=== PATIENT | male | born 1995 ===

== ENCOUNTER 2017-10-07 12:27 | Emergency (ER) | payer MEDICAID, OTHER ==
--- NOTE | 2017-10-07 12:39 | ED PDOC ---
HPI: Psych/Substance Abuse Time Seen by Provider: 10/07/17 12:38 Chief Complaint (Nursing): Psychiatric Evaluation Chief Complaint (Provider): crisis eval History Per: Patient Additional Complaint(s): 22-year-old male presents to emergency department for psychiatric evaluation. Patient's called the police when patient became agitated at home. EMS states that at home patient was verbalizing thoughts of wanting to harm himself and other people. Upon arrival patient is acutely agitated and aggressive and will not answer questions appropriately. He is refusing to change into gowns and is refusing all treatment. Patient's at bedside states the patient has a seizure disorder and the medications that he takes for the seizures cause him to be depressed and agitated. and patient don't know the name of the medication patient takes for seizures. Past Medical History Reviewed: Historical Data, Nursing Documentation, Vital Signs Vital Signs: Last Vital Signs Temp 98.6 F 10/07/17 12:31 Pulse 117 H 10/07/17 12:31 Resp 16 10/07/17 12:31 BP 154/87 H 10/07/17 12:31 Pulse Ox 99 10/07/17 12:31 - Medical History PMH: Asthma, Seizures - Family History Family History: States: No Known Family Hx - Living Arrangements Living Arrangements: With Family - Social History Alcohol: None Drugs: Cannabis - Home Medications Home Medications: Ambulatory Orders Medication Instructions Recorded No Known Home Med 05/20/17 - Allergies Allergies/Adverse Reactions: Allergies Allergy/AdvReac Type Severity Reaction Status Date / Time No Known Allergies Allergy Verified 05/20/17 16:04 Review of Systems ROS Statement: Except As Marked, All Systems Reviewed And Found Negative Psych: Positive for: Other (acute agitation) Physical Exam - Reviewed Nursing Documentation Reviewed: Yes Vital Signs Reviewed: Yes - Physical Exam Appears: Positive for: Well, Non-toxic, No Acute Distress Skin: Negative for: Rash Eye Exam: Positive for: Normal appearance, EOMI, PERRL Neurologic/Psych: Positive for: Alert, Oriented, Mood/Affect (Agitated, aggressive, combative), Gait (steady) - Laboratory Results Result Diagrams: 10/07/17 13:29 10/07/17 13:29 - ECG Interpretation Of ECG: NSR 96 bpm, no acute change, reviewed by PA and ED attending O2 Sat by Pulse Oximetry: 99 Pulse Ox Interpretation: Normal - Other Rad bedside chest X-Ray: Interpreted by Me, Viewed By Me X-Ray Interpretation: no acute finding Medical Decision Making Medical Decision Makin22 year old EDP 1:00 pm: Patient is acutely agitated upon arrival. Security was called to bedside as patient was becoming increasingly combative. Security restraint patient on the ground for his safety and safety of ED staff. [place] Police were also called. Patient calmed down and I explained in detail the ER evaluation procedure and the need for patient to change into gowns. After speaking with him extensively, patient was able to be redirected and finally agreed to change into grounds although he continued to raise his voice and curse at ED staff. Patient allowed for blood draw and also provided urine specimen. 1:30 pm: Crisis counselor entered patient's room to start evaluation the patient refused to speak with counseling 2:30 pm: Crisis counselor again went to speak with patient's and evaluation was completed. As per crisis counselor and psychiatrist orthodontic technician assistant, Dr. Kearney, patient's needs to be screened by [facility]. 3:00 pm - patient made aware that chest x-ray and EKG also need to be obtained. He became acutely agitated again and started to once again refuse to cooperate. Patient became increasingly agitated and combative and was unable to be redirected. Security was called to bedside again. Patient was placed in 4 point restraints and was medicated with ativan 2 mg IM and Haldol 5 mg IM, for his safety and safety of ED staff. Patient remains on a one-to-one bedside observation. 4:30 pm: Attempt made by RN to remove restraint patient became agitated when the nurse tried to do this. Strengths remain on patient will continue to be monitored. 5:30 pm: Restraints were removed, patient is asleep. He will continue to be monitored. 7:30 pm: patient is sleeping, stable 9:30 pm: patient is resting, offers no complaints 11:00 pm: Patient started to become acutely agitated while speaking with his mother on the phone. He refused to let go of phone and started to become acutely agitated again. Security was called to bedside and patient was placed in 4 point restraints once again for his safety and safety of ED staff. [facility] crisis counselor arrived shortly after to speak with the patient. 12:00 am: patient was evaluate by [facility], he became more calm and agreed to stay in stretcher, restraints were removed. Disposition - Clinical Impression Clinical Impression: Agitation - Patient ED Disposition Is Patient to be Admitted: Transfer of Care - Disposition Disposition: Transfer of Care Disposition Time: 00:22 Condition: FAIR Forms: [facility] (Serbian) Patient Signed Over To: Suri Barillas Handoff Comments: Case was signed out to SHER Barillas pending [facility] final disposition Results - Lab Results Lab Results: 10/07/17 10/07/17 10/07/17 14:10 14:10 13:29 WBC 8.8 RBC 4.91 Hgb 15.7 Hct 46.0 MCV 93.8 MCH 32.0 H MCHC 34.1 RDW 12.8 Plt Count 251 MPV 9.1 Neut % (Auto) 54.2 Lymph % (Auto) 35.7 Nobles % (Auto) 5.9 Eos % (Auto) 3.7 Baso % (Auto) 0.5 Neut # 4.8 Lymph # 3.1 Nobles # 0.5 Eos # 0.3 Baso # 0.0 Sodium Potassium Chloride Carbon Dioxide Anion Gap BUN Creatinine Est GFR ( Amer) Est GFR (Non-Af Amer) Random Glucose Calcium Total Bilirubin AST ALT Alkaline Phosphatase Total Protein Albumin Globulin Albumin/Globulin Ratio Urine Color Yellow Urine Clarity Slighty-cloudy Urine pH 5.0 Ur Specific [place] 1.020 Urine Protein 30 Urine Glucose (UA) Neg Urine Ketones Negative Urine Blood Negative Urine Nitrate Negative Urine Bilirubin Negative Urine Urobilinogen 0.2-1.0 Ur Leukocyte Esterase Neg Urine RBC (Auto) 4 H Urine Microscopic WBC 4 Ur Squamous Epith Cells < 1 Hyaline Casts 3-5 H Urine Opiates Screen Negative Urine Methadone Screen Negative Ur Barbiturates Screen Negative Ur Phencyclidine Scrn Negative Ur Amphetamines Screen Negative U Benzodiazepines Scrn Negative U Oth Cocaine Metabols Negative U Cannabinoids Screen Positive H Alcohol, Quantitative 10/07/17 13:29 WBC RBC Hgb Hct MCV MCH MCHC RDW Plt Count MPV Neut % (Auto) Lymph % (Auto) [place]les % (Auto) Eos % (Auto) Baso % (Auto) Neut # Lymph # [place]les # Eos # Baso # Sodium 145 Potassium 3.4 L Chloride 104 Carbon Dioxide 19 L Anion Gap 25 H BUN 16 Creatinine 1.2 Est GFR ( Amer) > 60 Est GFR (Non-Af Amer) > 60 Random Glucose 160 H Calcium 10.0 Total Bilirubin 1.5 H AST 36 ALT 44 Alkaline Phosphatase 72 Total Protein 8.4 H Albumin 5.2 H Globulin 3.3 Albumin/Globulin Ratio 1.6 Urine Color Urine Clarity Urine pH Ur Specific [place] Urine Protein Urine Glucose (UA) Urine Ketones Urine Blood Urine Nitrate Urine Bilirubin Urine Urobilinogen Ur Leukocyte Esterase Urine RBC (Auto) Urine Microscopic WBC Ur Squamous Epith Cells Hyaline Casts Urine Opiates Screen Urine Methadone Screen Ur Barbiturates Screen Ur Phencyclidine Scrn Ur Amphetamines Screen U Benzodiazepines Scrn U Oth Cocaine Metabols U Cannabinoids Screen Alcohol, Quantitative < 10
[2017-10-07 13:33] LABS: BASO % 0.5 % (0.0-2.0); EOS # 0.3 K/uL (0.0-0.7); EOS % 3.7 % (0.0-4.0); HEMOGLOBIN 15.7 g/dL (12.0-18.0); LYMPH # 3.1 K/uL (1.0-4.3); LYMPH % 35.7 % (20.0-40.0); MEAN CELL VOLUME 93.8 fl (80.0-94.0); MEAN CORPUSCULAR HGB CONC 34.1 g/dL (33.0-37.0); MEAN PLATELET VOLUME 9.1 fl (7.2-11.7); MONO # 0.5 K/uL (0.0-0.8); MONO % 5.9 % (0.0-10.0); NEUT # 4.8 K/uL (1.8-7.0); NEUT % 54.2 % (50.0-75.0); NRBC % 0.1 % (0.0-0.0); RBC 4.91 Mil/uL (4.40-5.90); RED CELL DISTRIBUTION WIDTH 12.8 % (11.5-14.5); WHITE BLOOD COUNT 8.8 K/uL (4.8-10.8)
[2017-10-07 13:55] LABS: ALBUMIN 5.2 g/dL (3.5-5.0); ALT/SGPT 44 U/L (21-72); AST/SGOT 36 U/L (17-59); BLOOD UREA NITROGEN 16 mg/dl (9-20); GFR AFRICAN-AMERICAN > 60; GFR NON-AFRICAN AMERICAN > 60
[2017-10-07 14:02] LABS: ALB/GLOB RATIO 1.6 (1.0-2.1)
[2017-10-07 14:42] LABS: BARBITURATES, UR NEGATIVE (NEGATIVE); BENZODIAZEPINES, UR NEGATIVE (NEGATIVE); OPIATES, UR NEGATIVE (NEGATIVE); PHENCYCLIDINE, UR NEGATIVE (NEGATIVE)
[2017-10-07 14:44] LABS: SQUAMOUS EPITHIAL < 1 /hpf (0-5); URINE BILIRUBIN NEGATIVE (NEGATIVE); URINE BLOOD NEGATIVE (NEGATIVE); URINE CLARITY SLIGHTY-CLOUDY (Clear); URINE COLOR YELLOW (YELLOW); URINE GLUCOSE (UA) NEG (Normal); URINE LEUKOCYTE ESTERASE NEG Leu/uL (Negative); URINE NITRATE NEGATIVE (NEGATIVE); URINE PROTEIN 30 mg/dL (NEGATIVE); URINE UROBILINOGEN 0.2-1.0 mg/dL (0.2-1.0)
--- NOTE | 2017-10-07 15:23 | RAD ---
HISTORY: clearance COMPARISON: No prior. FINDINGS: LUNGS: No active pulmonary disease. PLEURA: No significant pleural effusion identified, no pneumothorax apparent. CARDIOVASCULAR: Normal. OSSEOUS STRUCTURES: No significant abnormalities. VISUALIZED UPPER ABDOMEN: Normal. OTHER FINDINGS: None. IMPRESSION: No active disease.
[2017-10-07 18:46] VITALS: RESP 18
[2017-10-07 20:16] VITALS: O2SAT 99
[2017-10-08 00:25] VITALS: TEMP 98.2
[2017-10-08 00:26] VITALS: BP 114/78; PULSE 78
--- NOTE | 2017-10-08 03:03 | ED PDOC ---
- Laboratory Results Result Diagrams: 10/07/17 13:29 10/07/17 13:29 - ECG O2 Sat by Pulse Oximetry: 99 - Progress ED Course And Treament: case endorsed to editorial writer from [place] pending [facility] eval Patient evaluated by [facility] screener and accepted for transfer. Disposition - Clinical Impression Clinical Impression: Depression - POA Present On Arrival: None - Disposition Disposition: Other Institution ([facility]) Disposition Time: 05:51 Condition: STABLE Forms: [facility] (Citizen Of [place])
--- NOTE | 2017-10-08 16:36 | CARD ---
APPROVED REPORT EKG Measurement Heart [id number] <Conclusion> Sinus rhythm with marked sinus arrhythmia Otherwise normal ECG
== END 2017-10-08 06:00 | disposition short-term general hospital (02) ==
LOC: H.ER 12:27
DX: F32.9 Major depressive disorder, single episode, unspecified (principal); G40.909 Epilepsy, unspecified, not intractable, without status epilepticus; J45.909 Unspecified asthma, uncomplicated; Z00.8 Encounter for other general examination
CPT/HCPCS: 71045; 80053; 80320; 80324; 80345; 80346; 80349; 80353; 80358; 80361; 81003; 83992; 85025; 93005; 96372; 99285; J1630; J2060

== ENCOUNTER 2019-02-14 23:59 | Emergency (ER) | payer MEDICAID, OTHER ==
[2019-02-15 00:07] VITALS: BP 133/67; PULSE 83; RESP 17; O2SAT 96
[2019-02-15] MEDS ORDERED: Divalproex 500 mg ER (ONCE DAILY formulation) PO STA (00:22)
--- NOTE | 2019-02-15 01:08 | ED PDOC ---
HPI: Seizure Time Seen by Provider: 02/15/19 00:04 Chief Complaint (Nursing): Seizure Chief Complaint (Provider): Seizure History Per: Patient, Other (Friend) History/Exam Limitations: no limitations Recent Seizure Activity Began: Just Before Arrival Length Of Seizures (Duration): Minutes (less than 2 minutes) Associated Symptoms: Bit Tongue Additional Complaint(s): 23 years old male with history of seizure disorder brought to ER for evaluation of seizure. Patient supposed to be taking Depakote 500 mg daily but has not taken it for the past 3 days. He reports he is sleep deprived and his friend, who witnessed the seizure, reports it was tonic-clonic seizure that last less than 2 minutes with biting tongue. Patient reports he feels fine currently and states he had seizure before insetting of medication noncompliance. PMD: None provided Past Medical History Reviewed: Historical Data, Nursing Documentation, Vital Signs Vital Signs: Last Vital Signs Temp 97.8 F 02/15/19 00:04 Pulse 83 02/15/19 00:04 Resp 17 02/15/19 00:04 BP 133/67 02/15/19 00:04 Pulse Ox 96 02/15/19 00:04 Primary Care Provider: Non [facility] Provider, - Medical History PMH: Asthma, Seizures Denies: Diabetes, Hepatitis, HIV, HTN, Sexually Transmitted Disease - Surgical History Surgical History: No Surg Hx - Family History Family History: States: Unknown Family Hx - Home Medications Home Medications: Ambulatory Orders Medication Instructions Recorded No Known Home Med 05/20/17 - Allergies Allergies/Adverse Reactions: Allergies Allergy/AdvReac Type Severity Reaction Status Date / Time No Known Allergies Allergy Verified 02/15/19 00:07 Review of Systems ROS Statement: Except As Marked, All Systems Reviewed And Found Negative ENT: Positive for: Other (Bit tongue) Neurological: Positive for: Seizures Physical Exam - Reviewed Nursing Documentation Reviewed: Yes Vital Signs Reviewed: Yes - Physical Exam Appears: Positive for: Well, No Acute Distress Head Exam: Positive for: ATRAUMATIC, NORMOCEPHALIC Skin: Positive for: Normal Color, Warm, Dry Eye Exam: Positive for: Normal appearance, EOMI, PERRL ENT: Positive for: Other (Multiple abrasions to tongue. No bleeding) Neck: Positive for: Normal, Painless ROM, Supple Cardiovascular/Chest: Positive for: Regular Rate, Rhythm. Negative for: Murmur Respiratory: Positive for: Normal Breath Sounds. Negative for: Wheezing Gastrointestinal/Abdominal: Positive for: Normal Exam, Soft. Negative for: Tenderness Extremity: Positive for: Normal ROM. Negative for: Pedal Edema, Swelling Neurological/Psych: Positive for: Awake, Alert, Symmetric/Intact Strength, Oriented (x3), Gait (Steady). Negative for: Motor/Sensory Deficits - ECG O2 Sat by Pulse Oximetry: 96 (RA) Pulse Ox Interpretation: Normal Medical Decision Making Medical Decision Making: Time: 21 A/P: Seizure insetting of medication noncompliance --Currently patient is stable with no neuro deficit --Steady gait and A&O x3 --Instructed patient on importance of compliance with medication --Will give a dose of Depakote and observe for seizure activity 130 --No further seizure activity, patient remains well appearing --STrongly advised patient to followup with his doctor (he does not remember the name) Scribe Attestation: Documented by Pooja Alvares acting as a scribe for Ras Mcgowan MD. Provider Scribe Attestation: All medical record entries made by the Scribe were at my direction and personally dictated by me. I have reviewed the chart and agree that the record accurately reflects my personal performance of the history, physical exam, medical decision making, and the department course for this patient. I have also personally directed, reviewed, and agree with the discharge instructions and disposition. Disposition - Clinical Impression Clinical Impression: Seizure Counseled Patient/Family Regarding: Need For Followup - Disposition Referrals: Rick Crocker [Outside] Disposition: Routine/Home Disposition Time: 01:30 Condition: GOOD Instructions: Seizures, Adult (DC) Forms: [employer] ([place])
[2019-02-15 04:48] VITALS: TEMP 98.7
== END 2019-02-15 01:07 | disposition home or self-care (01) ==
LOC: H.ER 23:59
DX: G40.909 Epilepsy, unspecified, not intractable, without status epilepticus (principal); Z91.14 Patient's other noncompliance with medication regimen